=== PATIENT | male | born 1975 | race Two or more races ===

== ENCOUNTER 2025-01-12 08:59 | Outpatient (AMB) | payer OTHER, SELFPAY ==
--- NOTE | 2025-01-12 09:03 | A.OFFVIS_ITS ---
Vital Signs 01/12/25 09:05 Height 5 ft 9 in Weight 249 lb BMI 36.8 BP 110/82 Blood Pressure Location Rt brachial Position Sitting Pulse 66 Pulse Source Pulse Oximeter Pulse Oximetry (%) 98 Oxygen Delivery Method Room Air Intake Visit Reasons: ENP: Tremors/frequent worsening falls Intake Note: Patient referred by [facility] for tremors/frequent falls. Allergies No Known Allergies Allergy (Verified 01/12/25 09:05) HPI Comments Details: Patient was informed and verbally consented to the use of an ambient scribe for clinic note documentation during this visit. The patient is a 49-year-old Right handed male presenting with tremor and balance issues. Tremors began one to two years ago, primarily affecting his right hand during tasks such as eating. Balance issues started three to four years ago following a fall down stairs at home, resulting in fractures at C4-C5 and compression fractures at T7-T8. He uses a cane or walker due to frequent falls, partially attributed to lumbar spine changes, notably at L4-L5 and L5-S1 with mild to moderate foraminal stenosis. Additionally, he reports headaches in the right occipital region persisting for about two months, lasting several hours and recurring twice per week, somewhat relieved by Tylenol. Headaches are not accompanied by photophobia or phonophobia. Previous evaluations suggested possible neuropathy, and gabapentin 600 mg is currently administered thrice daily for management. MRI reviews show mild degenerative changes but no significant stenosis. He is managed by [facility]. He was also seen by and says he had EMG NCS in his LE- does not know the results. He denies any shooting pain down his legs . [facility] Medical History (Updated 01/12/25 @ 09:59 by Hollie Jerez MD) Coarse tremors Gait disorder Wedge compression fracture of T7-t8 vertebra, initial encounter for open fracture Vitamin D deficiency Schizophrenia Osteoarthritis ANISHA (obstructive sleep apnea) Lumbar radiculopathy Liver lesion Insomnia Hyperlipidemia HTN (hypertension) Hepatic hemangioma Hemorrhoids Gynecomastia GERD (gastroesophageal reflux disease) Depression Cyst of left kidney Bipolar disease, chronic Asthma Anxiety Surgical History Hx of bilateral breast reduction surgery H/O bariatric surgery H/O hemorrhoidectomy Hx of cholecystectomy Hx of appendectomy Family History Mother Diabetes Cancer CAD (coronary artery disease) Asthma Brother Diabetes Paternal Grandmother Cancer, colon Sister Uterine cancer Social History Alcohol intake: never Patient Tobacco Use Status: Never used Tobacco Physical Exam Vital Signs: Last Vital Signs Pulse 66 01/12/25 09:05 BP 110/82 01/12/25 09:05 Pulse Ox 98 01/12/25 09:05 Oxygen Delivery Method Room Air 01/12/25 09:05 BMI result Body Mass Index 36.8 Const General: cooperative, healthy appearing, comfortable and no acute distress Nutritional Appearance: average body habitus Orientation/consciousness: patient oriented x3 Eyes Pupils: Equal, round and reactive pupils present Neuro Other: no tremors noticed today with cane - normal posture stride and base. General: patient oriented x3, tone normal, moves all extremities and no focal motor deficits Cranial nerves: Yes Facial sensation intact/muscles of mastication intact, Yes Equal, round and reactive pupils present, Yes Bilaterally intact EOM present, Yes Nystagmus not present, Yes Normal facial strength present and Yes Midline tongue present Cognition (Neuro): normal cognition Motor exam (neuro): 5/5 motor strength present throughout and Normal motor muscle tone present throughout Deep tendon reflexes (DTR's): Right triceps reflex intensity grade: 1+, Left triceps reflex intensity grade: 1+, Rt Biceps (C5, C6): 1+, Left biceps reflex intensity grade: 1+, Right brachioradialis reflex intensity grade: 1+, Left brachioradialis reflex intensity grade: 1+, Right patellar reflex intensity grade: 0 and Left patellar reflex intensity grade: 0 Coordination: [id number] test normal Assessment & Plan Assessment & Plan (1) Gait disorder: Comment: multifactorial , due to pain , DJD , medictaions etc Code(s): R26.9 - Unspecified abnormalities of gait and mobility Category: Medical (2) Coarse tremors: Comment: exaggerated physiological , intermittent and occasional Code(s): G25.2 - Other specified forms of tremor Category: Medical Plan - Continue taking gabapentin 600mg tid F/u pain management. - Engage in physical therapy as scheduled for balance improvements. - Vitamins B12 tests will be done; - Monitor symptoms and report significant changes, particularly if balance or tremors worsen. - MRI reports from Daily and EMG report from office for review. - Follow up in six months, or earlier if new symptoms or concerns arise. Orders: Orders PT Evaluation and Treatment Today R26.9 - Unspecified abnormalities of gait and mobility Vitamin B12 and Folate Today R26.9 - Unspecified abnormalities of gait and mobility Coding Level of Care Code New Pt Level 4 (98318) Complex EM visit Add On G2211 Diagnoses Gait disorder R26.9 Coarse tremors G25.2
[2025-01-12 09:05] VITALS: BP 110/82; PULSE 66; O2SAT 98; BMI 36.8
--- OUTSIDE RECORDS SUMMARY | 2025-01-12 09:50 | XMS_ITS | Clinical Summary ---
Author Organization [facility] Address [address] [place] [address] Care Team Providers Care Glass Or Mirror Inspector Name Role Phone Joao Malloy MD Primary Care Provider [phone] Allergies Active Allergy Reactions Criticality Noted Date Comments Oxycodone-Acetaminophen 12/18/2023 Medications Medication Sig Dispensed Refills Start Date End Date Status Senna S 8.6-50 MG 0 11/30/2023 Active sertraline (ZOLOFT) 100 MG tablet 0 11/30/2023 Active pantoprazole (PROTONIX) 40 MG tablet 0 11/05/2023 Active polyethylene glycol (MIRALAX) 17 g packet 0 11/30/2023 Act estelle Multiple Vitamin (Tab-A-Jaden) TABS 0 11/05/2023 Active gabapentin (NEURONTIN) 300 MG capsule Take 2 capsules (600 mg total) by mouth 3 (three) times a day. 0 11/30/2023 Active Flovent HFA 220 MCG/ACT inhaler 0 11/05/2023 Active Diclofenac Sodium 1 % GEL 0 12/01/2023 Active clonazePAM (KlonoPIN) 1 MG tablet 0 11/30/2023 Active clonazePAM (KlonoPIN) 2 MG tablet 0 11/30/2023 Active cetirizine (ZyrTEC) 10 MG tablet 0 11/30/2023 Active buPROPion (WELLBUTRIN XL) 150 MG 24 hr tablet 0 11/30/2023 Active asenapine (SAPHRIS) 5 MG SUBL 0 11/30/2023 Active Asenapine Maleate 10 MG SUBL 0 11/30/2023 Active albuterol 108 (90 Base) MCG/ACT inhaler 0 11/30/2023 Act estelle albuterol (PROVENTIL) (2.5 MG/3ML) 0.083% nebulizer solution 0 11/30/2023 Active acetaminophen (TYLENOL) 325 MG tablet 0 11/05/2023 Active Social History Tobacco Use Types Packs/Day Years Used Date Smoking Tobacco: Never Smokeless Tobacco: Never Tobacco Cessation:Counseling Given: Not Answered Sex and Gender Information Value Date Recorded Sex Assigned at Not on file Gender Identity Not on file Sexual Orientation Not on file Job Start Date Occupation Industry Not on file Not on file Not on file Last Filed Vital Signs Vital Sign Reading Time Taken Comments Blood Pressure 140/90 09/05/2024 2:00 PM EDT Pulse 79 09/05/2024 2:00 PM EDT Temperature 36.7 ??C (98 ??F) 09/05/2024 2:00 PM EDT Respiratory Rate 16 01/04/2024 7:28 AM EST Oxygen Saturation 98% 09/05/2024 2:00 PM EDT Inhaled Oxygen Concentration - - Weight 113.4 kg (250 lb) 09/05/2024 2:00 PM EDT Height 175.3 cm (5' 9 ) 09/05/2024 2:00 PM EDT Body Mass Index 36.92 09/05/2024 2:00 PM EDT Plan of Treatment Health Maintenance Due Date Last Done Comments Hepatitis B Vaccines (1 of 3 - 3-dose series) 1973 Hepatitis C Screening 1973 Depression Screening 1985 BMI Counseling 1991 Preventative Health Evaluation 1991 Colon Cancer Screening (Colonoscopy) 2018 Shingrix-Zoster Vaccine (1 of 2) 2023 COVID-19 Vaccine ( season) 2024 06/11/2021, 05/14/2021 Influenza Vaccine (#1) 2024 3, 08/14/2022, 09/23/2021, Additional history exists DTap / Tdap / Td (2 - Td or Tdap) 02/27/2032 02/26/2022 Pneumococcal Vaccine Aged Out 07/29/2018, 11/28/19 17 No longer eligible based on patient's age to complete this topic RSV Ped < 20 months Aged Out No longe r eligible based on patient's age to complete this topic Care Teams Glass Or Mirror Inspector Relationship Specialty Start Date End Date Joao Malloy MD [address] [place] [address] PCP - General Internal Medicine 03/23/20
--- OUTSIDE RECORDS SUMMARY | 2025-01-12 09:51 | XMS_ITS | Clinical Summary ---
Author Organization [facility] Address [address] [place] [address] Phone Care Team Providers Care Professional System Administrator Name Role Phone Joao Malloy MD Primary Care Provider [phone] Allergies Active Allergy Reactions Criticality Noted Date Comments Oxycodone Low blood pressure 09/16/2024 Medications acetaminophen (TYLENOL) 325 mg tablet TAKE ONE TABLET BY MOUTH EVERY 6 HOURS NEEDED FOR PAIN (VIAL) 11/05/20 23 Active albuterol 2.5 mg /3 mL (0.083 %) nebulizer solution INHALE ONE VIAL VIA NEBULIZER EVERY 4 HOURS NEEDED WHEEZING (BULK) 02/11/20 24 Active albuterol HFA (PROAIR HFA ; PROVENTIL HFA ; VENTOLIN HFA) 90 mcg/actuation inhaler INHALE TWO PUFFS BY MOUTH EVERY 6 HOURS NEEDED FOR COUGH OR WHEEZING (BULK) 02/23/20 24 Active asenapine maleate (SAPHRIS) [address] 1 Tablet under the tongue. Take 5 mg in am and 10 mg in pm- per psychiatrist Active atorvastatin (LIPITOR) 10 mg tablet Take 1 Tablet by mouth daily for 180 days. 03/28/20 24 Active buPROPion XL (WELLBUTRIN XL) 150 mg 24 hr tablet 05/09/20 24 Active cetirizine (ZyrTEC) 10 mg tablet TAKE 1 TABLET BY MOUTH EVERY DAY (VIAL) 02/23/20 24 Active clonazePAM (KlonoPIN) 1 mg tablet Take 1 mg by mouth 3 times daily as needed. Active clotrimazole (LOTRIMIN) 1 % cream Apply in a thin layer twice daily for up to 1 week with yeast rash 03/23/20 24 025 Active diclofenac (VOLTAREN) 1 % topical gel Apply 1 g topically 2 Times Daily. 03/23/20 24 Active ketoconazole (NIZORAL) 2 % cream APPLY TOPICALLY TO FEET TWO TIMES A DAY FOR 2 WEEKS (BULK) 08/04/20 24 Active sertraline (ZOLOFT) 100 mg tablet Take 1.5 Tablets by mouth daily. Active sertraline (ZOLOFT) 50 mg tablet 07/06/20 24 Active multivitamin tablet TAKE ONE TABLET BY MOUTH EVERY DAY ^1R1 06/02/20 23 Active aspirin 81 mg EC tablet TAKE ONE TABLET BY MOUTH EVERY DAY ^1R1 30 tablet 5 10/31/20 24 Active pantoprazole (PROTONIX) 40 mg EC tablet Take 1 tablet (40 mg total) by mouth 1 (one) time each day before breakfast. Do not crush, chew, or split. 90 tablet 1 11/29/19 25 Active fluticasone HFA (FLOVENT HFA) 220 mcg/actuation inhaler INHALE 2 PUFFS INTO THE LUNGS TWO TIMES A DAY (BULK) 12 g 5 11/30/19 25 Active cholecalcifero l (VITAMIN D-3) 50 mcg (2,000 unit) tablet TAKE ONE TABLET BY MOUTH EVERY DAY ^1R1 30 tablet 5 11/30/19 25 Active Senna-S 8.6-50 mg per tablet TAKE ONE TABLET BY MOUTH DAILY ^1R1 30 tablet 5 11/30/19 25 Active gabapentin (NEURONTIN) 600 mg tablet Take 1 tablet (600 mg total) by mouth 3 (three) times a day. 270 tablet 1 12/27/19 25 Active gabapentin (NEURONTIN) 600 mg tablet TAKE ONE TABLET BY MOUTH THREE TIMES A DAY ^1R1,1R2,1R4 90 tablet 11/30/19 25 025 Discontinued Active Problems Problem Noted Date Diagnosed Date Lumbar spondylosis 09/22/2019 Overview (09/15/2024): Last Assessment & Plan: Mr. Melani Leiva did undergo an L5-S1 DOMINGUEZ by Dr. Seth with the anesthesia pain management at [facility] on 01/04/2024. He says it helped him tremendously for 4 months but now both lower extremities are again numb whenever he stands and walks. He uses a cane and a walker. He also describes pain in his heels and underwent injections in his heels by Dr. Kelly of orthopedics. On exam, seated SLR is positive bilaterally at 90 degrees. Strength is 5/5 except for some giveaway of left hip flexion at 5-/5. I reviewed his lumbar spine MRI from 12/09/2023 which shows mild disc desiccation at L4-5 and L5-S1 without loss of disc height, central or foraminal stenosis. Mr. Melani Leiva would like to undergo another epidural injection since he had such a great result. I do not see a role for surgery so we will refer him back to [facility]. Assessment & Plan (10/20/2024 10:27 AM EST): Follow-up back pain, he has been followed by pain management and already follow- up with neurosurgery. He is also taking gabapentin to help with his pain. Liver lesion 01/28/2019 Overview (09/15/2024): 1.1 cm echogenic liver lesion right lobe posteriorly most likely representing benign hemangioma. Cyst of left kidney 01/17/2019 Overview (09/15/2024): US abdomen (01/17/19): 1.4 cm simple cyst left kidney. Gynecomastia 06/24/2018 Overview (09/15/2024): ? 2015 surgery Hemorrhoid 06/24/2018 Overview (09/15/2024): internal Hepatic hemangioma 06/24/2018 Overview (09/15/2024): US abdomen (01/17/19): 1.1 cm echogenic liver lesion right lobe posteriorly most likely representing benign hemangioma. 08/2015 referred to GI; U/S 1.4 cm lesion-right hepatic lobe Hyperlipidemia 06/24/2018 Assessment & Plan (10/20/2024 10:27 AM EST): Follow low-cholesterol diet. Continue current regimen of atorvastatin. Vitamin D deficiency 06/24/2018 Anxiety 04/06/2018 Asthma 04/06/2018 Bipolar disease, chronic 04/06/2018 Depression 04/06/2018 Overview (09/15/2024): Follwed by psychiatrist Dr Oquendo [facility] GERD (gastroesophageal reflux disease) 8 HTN (hypertension) 04/06/2018 Insomnia 04/06/2018 ANISHA on CPAP 04/06/2018 Osteoarthritis 04/06/2018 Overview (09/15/2024): Lumbosacral Spine, Seeing pain mangement, Hips, Knees Schizophrenia 04/06/2018 Encounters Date Type Department Care Team Description 10/26/2024 9:45 AM EST Office Visit Orthopedic Surgery - [address] [address] Robin Arceo DPM Lumbosacral radiculopathy (Primary Dx); Pain in both feet; Equinus contracture of left ankle; Pes planus of both feet; Plantar fasciitis 10/20/2024 9:45 AM EST Office Visit Internal Medicine - [address] [id number] Joao Mallyo MD Chest pain, unspecified type (Primary Dx); Hyperlipidemia, unspecified hyperlipidemia type; Lumbar spondylosis from Last 3 Months Immunizations Name Administration Dates Next Due Influenza Quadravalent, MDCK , 0.5ml, preservative free (Flucelvax) 6mo and older 08/25/2023,08/14/2022,09/23/2021,2019,07/21/2019 Influenza trivalent, 0.5mL ( Fluad) 65yo and older 07/23/2017 Influenza trivalent, 0.5mL, preservative free (Fluarix; FluLaval; Fluzone) ages 6mo and older (Afluria) 3 years and older 07/29/2016,08/07/2015 Influenza trivalent, MDCK, 0 .5mL, preservative free (Flucelvax) 6mo and older 10/20/2024 Moderna SARS-CoV-2 COVID-19, mRNA, LNP-S, preservative free 02/21/2022 Pneumococcal conjugate 13 va lent (Prevnar 13, PCV13) 2mo and older 11/28/2016 Tdap Tetanus diptheria acell ular pertussis (Boostrix; Adacel) 7yo and older 02/26/2022 Surgical History Surgery Date Site/Laterality Comments APPENDECTOMY PROCEDURE: HISTORICAL APPENDECTOMY CHOLECYSTECTOMY PROCEDURE: HISTORICAL CHOLECYSTECTOMY OTHER SURGICAL HISTORY PROCEDURE: HISTORY OTHER; COMMENT: hemorrhoidectomy OTHER SURGICAL HISTORY 05/2017 PROCEDURE: HISTORY OTHER; COMMENT: bariatric surgery; partial gastrectomy OTHER SURGICAL HISTORY PROCEDURE: HISTORY OTHER; COMMENT: Breast reduction for gynecomastia Medical History Medical History Date Comments Asthma 04/06/2018 DX:Asthma HTN (hypertension) 04/06/2018 DX:HTN (hyper tension) Depression 04/06/2018 DX:Depression Anxiety 04/06/2018 DX:Anxiety Schizophrenia (CMS/HCC) 04/06/2018 DX:Schiz ophrenia (HCC) Bipolar disease, chronic (CMS/HCC) 04/06/2018 DX:Bipolar disease, chronic (HCC) ANISHA on CPAP 04/06/2018 DX:ANISHA on CPAP GERD (gastroesophageal reflux disease) 04/06/2018 DX:GERD (gastroesophageal reflux disease) History of bariatric surgery 06/24/2018 DX: History of bariatric surgery Hyperlipidemia 06/24/2018 DX:Hyperlipidemi a Hemorrhoid 06/24/2018 DX:Hemorrhoid; C OMMENT: internal Vitamin D deficiency 06/24/2018 DX:Vitamin D deficiency Gynecomastia 06/24/2018 DX:Gynecomastia; COMMENT: ? 2015 surgery Hepatic hemangioma 06/24/2018 DX:Hepatic he mangioma; COMMENT: 08/2015 referred to GI; U/S 1.4 cm lesion-right hepatic lobe Osteoarthritis 04/06/2018 DX:Osteoarthriti s; COMMENT: Lumbosacral Spine, Seeing pain mangement, Hips, Knees Lumbar radiculopathy 09/22/2019 DX:Lumbar r adiculopathy Cyst of left kidney 01/17/2019 DX:Cyst of l eft kidney; COMMENT: US abdomen (01/17/19): 1.4 cm simple cyst left kidney. Insomnia 04/06/2018 DX:Insomnia Liver lesion 01/28/2019 DX:Liver lesion; COMMENT: 1.1 cm echogenic liver lesion right lobe posteriorly most likely representing benign hemangioma. Wedge compression fracture o f T7-t8 vertebra, initial encounter for open fracture (CMS/HCC) 01/24/2021 DX:Wedge compression fractur e of T7-t8 vertebra, initial encounter for open fracture (HCC); COMMENT: chronic Back pain Family History Medical History Relation Name Comments Diabetes Brother Diabetes Mother Cancer of the B reast,CAD, asthma Colon cancer Paternal Grandmother Breast cancer Sister 1 Uterine cancer Sister 2 Breast cancer Uncle Relation Name Status Comments Brother Mother Paternal Grandmother Sister 1 Sister 2 Uncle Social History Tobacco Use Types Packs/Day Years Used Date Smoking Tobacco: Former Cigarettes Q uit: 2013 Smokeless Tobacco: Never Tobacco Cessation:Counseling Given: Not Answered Alcohol Use Standard Drinks/Week Comments Not Currently 0 (1 standard drink = 0.6 oz pur e alcohol) Interpersonal Safety Answer Date Record ed Physical Abuse 09/16/2024 Have you ever been verbally abused? Not on file 09/16/2024 Sex and Gender Information Value Date Recorded Sex Assigned at Not on file Legal Sex Male 9:59 AM EST Gender Identity Male 10/14/2024 9:00 AM EST Sexual Orientation Straight 10/14/2024 9: 00 AM EST Obstetrics History Last Filed Vital Signs Vital Sign Reading Time Taken Comments Blood Pressure 112/80 10/20/2024 9:20 AM EST Pulse 76 10/20/2024 9:20 AM EST Temperature 36.7 ??C (98.1 ??F) 09/16/2024 1:55 PM ES T Respiratory Rate 16 09/16/2024 1:49 PM EST Oxygen Saturation 97% 09/16/2024 1:55 PM EST Inhaled Oxygen Concentration - - Weight 112 kg (248 lb) 10/26/2024 10:01 AM EST Height 175.3 cm (5' 9.02 ) 10/26/2024 10:[address] Body Mass Index 36.61 10/26/2024 10:01 AM EST Plan of Treatment Upcoming Encounters Date Type Department Care Team (Late st Contact Info) Description 01/18/2025 2:00 PM EDT [facility] [address] [place], [place] [phone] Joao Malloy MD [address] [place] [address] Health Maintenance Due Date Last Done Comments Hepatitis B Vaccines (1 of 3 - 19+ 3-dose series) 1992 Medicare Annual Wellness Visit 10/07/2022 Social Influencers of Health Screening 10/07/2022 Pneumococcal Vaccine: 50+ Years (3 of 3 - PCV20 or PCV21) 2023 07/29/2018, 11/28/2016, 07/17/2014 Pneumococcal Vaccine: Pediatrics (0 to 5 Years) and At-Risk Patients (6 to 64 Years) (3 of 3 - PCV20 or PCV21) 2023 07/29/2018, 11/28/2016, 07/17/2014 Zoster Vaccines (1 of 2) 2023 COVID-19 Vaccine ( season) 2024 02/21/2022, 06/11/2021, 05/14/2021 Hypertension/CHF/CAD Annual BMP Blood Test 07/01/2025 07/01/2024, 03/25/2024 Depression Screening 10/13/2025 10/13/2024 Cholesterol Screening (Lipid Panel) 07/01/2029 07/01/2024, 07/01/2024, 03/25/2024 DTaP,Tdap,and Td Vaccines (3 - Td or Tdap) 02/27/2032 02/26/2022, 12/23/2018 Colorectal Cancer Screening: Colonoscopy 07/28/2032 07/28/2022 HIV Screening Completed 07/29/2018 Hepatitis C Screening Completed 07/29/2018 Influenza Vaccine Completed 10/20/2024, , 08/14/2022, Additional history exists HIB Vaccines Aged Out No longer eligi ble based on patient's age to complete this topic HPV Vaccines Aged Out No longer eligi ble based on patient's age to complete this topic Hepatitis A Vaccines Aged Out No long er eligible based on patient's age to complete this topic IPV Vaccines Aged Out No longer eligi ble based on patient's age to complete this topic MMR Vaccines Aged Out No longer eligi ble based on patient's age to complete this topic Meningococcal ACWY Vaccine Aged Out N o longer eligible based on patient's age to complete this topic Meningococcal B Vacine Aged Out No lo nger eligible based on patient's age to complete this topic RSV Immunization Patients Under 20 months Aged Out No longer eligible based on patient's age to complete this topic Varicella Vaccines Aged Out No longer eligible based on patient's age to complete this topic Procedures Procedure Name Priority Date/Time Associated Diagnosis Comments INJECTION TENDON OR LIGAMENT Routine 10/26/2024 9:45 AM EST Plantar fasciitis INJECTION TENDON OR LIGAMENT Routine 10/26/2024 9:45 AM EST Plantar fasciitis ANNUAL BMP BLOOD TEST Routine 07/01/2024 LIPID PANEL Routine 07/01/2024 COLONOSCOPY Routine 07/28/2022 HEPATITIS C SCREENING Routine 07/29/2018 HIV SCREENING Routine 07/29/2018 from Last 3 Months or Most Recently Relevant to Health Maintenance Results * Injection tendon or ligament (10/26/2024 9:45 AM EST) Narrative Robin Arceo DPM - 10/26/2024 9:45 AM EST Robin Arceo DPM ? 10/26/2024 12:52 PM Injection tendon or ligament Indications: pain Details: 25 G needle Medications: 1 mL lidocaine (PF) 1 %; 40 mg triamcinolone acetonide 40 mg/mL Informed Consent: ??Laterality: ??Left us Robin Arceo DPM IN CLINIC/BEDSIDE ORDERABLE S Final Result * Injection tendon or ligament (10/26/2024 9:45 AM EST) Narrative Robin Arceo DPM - 10/26/2024 9:45 AM EST Robin Arceo DPM ? 10/26/2024 12:52 PM Injection tendon or ligament Indications: pain Details: 25 G needle Medications: 1 mL lidocaine (PF) 1 %; 40 mg triamcinolone acetonide 40 mg/mL Informed Consent: ??Laterality: ??Right Result [facility] Robin Arceo DPM IN CLINIC/BEDSIDE ORDERABLE S Final Result * Annual BMP Blood Test (07/01/2024) [facility] Annual BMP Blood Test Abstracted Result [facility] Provider HEALTH MAINTENANCE Final Result * (ABNORMAL) Lipid panel (07/01/2024) [facility] LDL/HDL Ratio 3 0 - 4 Triglycerides 169(A) 0 - 150 mg/dL Cholesterol 132 0 - 200 mg/dL HDL 49 >=40 mg/dL LDL Cholesterol 50 0 - 100 mg/dL Blood Venous blood specimen / Unknown Result [facility] Provider LAB BLOOD ORDERABLES Samantha l Result * Colonoscopy (07/28/2022) [facility] Colonoscopy Abstracted, no interpretation Anatomical Region Laterality Modality Other Result [facility] Provider HEALTH MAINTENANCE Final Result * HIV Screening (07/29/2018) [facility] HIV Screening Abstracted Result [facility] Provider HEALTH MAINTENANCE Final Result * Hepatitis C Screening (07/29/2018) [facility] Hepatitis C Screening Abstracted Result [facility] Provider HEALTH MAINTENANCE Final Result from Last 3 Months or Most Recently Relevant to Health Maintenance Insurance [facility] MEDIC[facility] Member Subscriber Plan / Payer (Ef fective 2015-Present) Name:Dequan Middleton Relation to Subscriber:Self Name:Dequan Middleton Payer ID:[id number] Group ID:[id number] Type:Not on file Address: [place] [address] [place] [phone] Care Teams Professional System Administrator Relationship Specialty Start Date End Date Joao Malloy MD [address] [place] [id number] PCP - General Internal Medicine 12/31/17
--- OUTSIDE RECORDS SUMMARY | 2025-01-12 09:51 | XMS_ITS | Encounter Summary ---
Author Organization [facility] Address [address] [place] [address] Care Team Providers Care Chemical Analytical Sampler Name Role Phone Joao Malloy MD Primary Care Provider [phone] Encounter Details Date Type Department Care Team (Late st Contact Info) Description 09/05/2024 2:06 PM EDT Hospital Encounter TH HISTORIC ENCOUNTERS EASTERN CONVERSION ONLY Niko Seth MD [address] [place] [address] Social History Tobacco Use Types Packs/Day Years Used Date Smoking Tobacco: Former Cigarettes Q uit: 2013 Smokeless Tobacco: Never Alcohol Use Standard Drinks/Week Comments Not Currently [...] Orientation Straight 10/14/2024 9: 00 AM EST documented as of this encounter Last Filed Vital Signs Vital Sign Reading Time Taken Comments Blood Pressure 140/90 09/05/2024 2:00 PM EDT Pulse 79 09/05/2024 2:00 PM EDT Temperature - - Respiratory Rate - - Oxygen Saturation - - Inhaled Oxygen Concentration - - Weight 113 kg (250 lb) 09/05/2024 2:00 PM EDT Height 175.3 cm (5' 9 ) 09/05/2024 2:00 PM EDT Body Mass Index 36.92 09/05/2024 2:00 PM EDT documented in this encounter Plan of Treatment Upcoming Encounters Date Type Department Care Team (Late st Contact Info) Description 01/18/2025 2:00 PM EDT Office Visit Internal Medicine - [address] [phone] Joao Malloy MD [address] [place] [phone] documented as of this encounter Visit Diagnoses Not on filedocumented in this encounter Care Teams Chemical Analytical Sampler Relationship Specialty Start Date End Date Joao Malloy MD [address] [place] [id number] PCP - General Internal Medicine 12/31/17 documented as of this encounter
== END 2025-01-12 09:43 | disposition home or self-care (01) ==
PROVIDERS: PCP Neurological Surgery; Visit Provider Psychiatry & Neurology Neurology
DX: R26.9 Unspecified abnormalities of gait and mobility (principal); G25.2 Other specified forms of tremor
CPT/HCPCS: 99204; G2211

== ENCOUNTER 2025-01-12 08:59 | Outpatient (REF) | payer OTHER, SELFPAY ==
--- OUTSIDE RECORDS SUMMARY | 2025-01-12 11:11 | XMS_ITS | Encounter Summary ---
Author Organization [facility] Address [address] [place] [address] Care Team Providers Care Stock Sorter Name Role Phone Joao Malloy MD Primary Care Provider [phone] Encounter Details Date Type Department Care Team (Late st Contact Info) Description 09/05/2024 2:06 PM EDT Hospital Encounter TH HISTORIC ENCOUNTERS EASTERN CONVERSION ONLY Niko Seth MD [address] [place] [address] Social History Tobacco Use Types Packs/Day Years [...] PM EDT Office Visit Internal Medicine - [address] [phone] Joao Malloy MD [address] [place] [address] documented as of this encounter Visit Diagnoses Not on filedocumented in this encounter Care Teams Stock Sorter Relationship Specialty Start Date End Date Joao Malloy MD [address] [place] [address] PCP - General Internal Medicine 12/31/17 documented as of this encounter
--- OUTSIDE RECORDS SUMMARY | 2025-01-12 11:11 | XMS_ITS | Clinical Summary ---
Author Organization [facility] Address [address] [place] [address] Care Team Providers Care Workforce Development Assistant Name Role Phone Joao Malloy MD Primary Care Provider [phone] Allergies Active Allergy Reactions Criticality Noted Date [...] age to complete this topic Care Teams Workforce Development Assistant Relationship Specialty Start Date End Date Joao Malloy MD [address] [place] [address] PCP - General Internal Medicine 03/23/20
--- OUTSIDE RECORDS SUMMARY | 2025-01-12 11:11 | XMS_ITS | Clinical Summary ---
Author Organization [facility] Address [address] [place] [address] Phone Care Team Providers Care Diversional Therapist Name Role Phone Joao Malloy MD Primary Care Provider [phone] Allergies Active Allergy Reactions Criticality Noted Date [...] Seth with the anesthesia pain management at [facility] on 01/04/2024. He says it helped him [...] so we will refer him back to [place] pain management. Assessment & Plan (10/20/2024 10:27 [...] (09/15/2024): Follwed by psychiatrist Dr Oquendo [address] [facility] GERD (gastroesophageal reflux disease) 8 HTN (hypertension) 04/06/2018 Insomnia 04/06/2018 ANISHA on CPAP 04/06/2018 Osteoarthritis 04/06/2018 Overview (09/15/2024): Lumbosacral Spine, Seeing pain mangement, Hips, Knees Schizophrenia 04/06/2018 Encounters Date Type Department Care Team Description 10/26/2024 9:45 AM EST Office Visit Orthopedic Surgery - [address] [address] Robin Arceo DPM Lumbosacral radiculopathy (Primary Dx); Pain in both feet; Equinus contracture of left ankle; Pes planus of both feet; Plantar fasciitis 10/20/2024 9:45 AM EST Office Visit Internal Medicine - [address] [phone] Joao Malloy MD Chest pain, unspecified type (Primary Dx); [...] PM EDT Office Visit [facility] - [facility] [address] [place], [place] [phone] Joao Malloy MD [address] [place] [address] Health Maintenance Due Date Last Done Comments [...] Procedure Name Priority Date/Time Associated Diagnosis Comments EXTERNAL NEUROLOGY REPORT Routine 01/12/2025 10:40 AM EST INJECTION TENDON OR LIGAMENT Routine 10/26/2024 9:45 AM EST Plantar fasciitis INJECTION TENDON OR LIGAMENT Routine 10/26/2024 9:45 AM EST Plantar fasciitis ANNUAL BMP BLOOD TEST Routine 07/01/2024 LIPID PANEL Routine 07/01/2024 COLONOSCOPY Routine 07/28/2022 HEPATITIS C SCREENING Routine 07/29/2018 HIV SCREENING Routine 07/29/2018 from Last 3 Months or Most Recently Relevant to Health Maintenance Results * External Neurology Report (01/12/2025 10:40 AM EST) Historical Provider NEUROLOGY ORDERABLES Samantha cisse Result * Injection tendon or ligament (10/26/2024 9:45 AM EST) Narrative Robin Arceo DPM - 10/26/2024 9:45 AM EST Robin Arceo DPM ? 10/26/2024 12:52 PM Injection tendon or ligament Indications: pain Details: 25 G needle Medications: 1 mL lidocaine (PF) 1 %; 40 mg triamcinolone acetonide 40 mg/mL Informed Consent: ??Laterality: ??Left Robin Arceo DPM IN CLINIC/BEDSIDE ORDERABLE S Final Result * Injection tendon or ligament (10/26/2024 9:45 AM EST) Narrative Robin Arceo DPM - 10/26/2024 9:45 AM EST Robin Arceo DPM ? 10/26/2024 12:52 PM Injection tendon or ligament Indications: pain Details: 25 G needle Medications: 1 mL lidocaine (PF) 1 %; 40 mg triamcinolone acetonide 40 mg/mL Informed Consent: ??Laterality: ??Right Result [facility] Robin Arceo DPM IN CLINIC/BEDSIDE ORDERABLE S Final Result * Annual BMP Blood Test (07/01/2024) [facility] Annual BMP Blood Test Abstracted Result [facility] Provider HEALTH MAINTENANCE Final Result * (ABNORMAL) Lipid panel (07/01/2024) [facility] LDL/HDL Ratio 3 0 - 4 Triglycerides 169(A) 0 - 150 mg/dL Cholesterol 132 0 - 200 mg/dL HDL 49 >=40 mg/dL LDL Cholesterol 50 0 - 100 mg/dL Blood Venous blood specimen / Unknown Result [facility] Provider LAB BLOOD ORDERABLES Samantha l Result * Colonoscopy (07/28/2022) [facility] Colonoscopy Abstracted, no interpretation Anatomical Region Laterality Modality Other [facility] Provider HEALTH MAINTENANCE Final Result * HIV Screening (07/29/2018) [facility] HIV Screening Abstracted [facility] Provider HEALTH MAINTENANCE Final Result * Hepatitis C Screening (07/29/2018) [facility] Hepatitis C Screening Abstracted [facility] Provider HEALTH MAINTENANCE Final Result from Last 3 Months or Most Recently Relevant to Health Maintenance Insurance [facility] MEDICARE Member Subscriber Plan / Payer (Ef fective 2015-Present) Name:PoloDequan Rolon Relation to Subscriber:Self Name:Polo Abbie Dequan Payer ID:[id number] Group ID:[id number] Type:Not on file Address: [place] [address] [address] Care Teams Diversional Therapist Relationship Specialty Start Date End Date Joao Malloy MD [address] [place] [phone] PCP - General Internal Medicine 12/31/17
[2025-01-12 18:54] LABS: Folate 14.2 ng/mL (> or = 4.0); Vitamin B12 850 pg/mL (200-900)
== END 2025-01-12 09:00 | disposition home or self-care (01) ==
LOC: HO.HKASLDS 08:59
PROVIDERS: PCP Neurological Surgery; Visit Provider Psychiatry & Neurology Neurology
DX: R26.9 Unspecified abnormalities of gait and mobility (principal); G25.2 Other specified forms of tremor
CPT/HCPCS: 36415; 82607; 82746; 99202